=== PATIENT | male | born 1970 | race African-American/Black ===

== ENCOUNTER 2022-01-06 13:44 | Emergency (ER) | payer OTHER ==
--- NOTE | 2022-01-06 15:43 | Emergency Department Report ---
ED Dizziness HPI - General Chief Complaint: Dyspnea/Respdistress Stated Complaint: DIFFICULTY BREATHING Time Seen by Provider: 01/06/22 15:00 Source: patient, EMS, RN notes reviewed Mode of arrival: Stretcher Limitations: Language Barrier - History of Present Illness Initial Comments: 51-year-old male with history of congestive heart failure, hypertension, and pacemaker presents to the emergency department complaining of subjective dizziness with head movement since yesterday. Patient denies shortness of breath, but does report having a "cold" last week. Patient denies headache, chest pain, abdominal pain, nausea, vomiting, fever or chills. Patient denies weakness or fatigue. Patient denies lower extremity swelling or pain. Patient denies previous similar symptoms. Patient reports that symptoms get worse with head movement, and improved with rest. Patient family was diagnosed with COVID-19 last week. MD Complaint: dizziness - Related Data Allergies Allergy/AdvReac Type Severity Reaction Status Date / Time No Known Allergies Allergy Verified 01/06/22 13:52 ED Review of Systems ROS: Stated complaint: DIFFICULTY BREATHING Other details as noted in HPI Comment: All other systems reviewed and negative Constitutional: denies: chills, fever, weakness Eyes: denies: eye pain, eye discharge, vision change ENT: denies: ear pain, throat pain Respiratory: denies: cough, shortness of breath, wheezing Cardiovascular: denies: chest pain, palpitations Endocrine: no symptoms reported Gastrointestinal: denies: abdominal pain, nausea, diarrhea Genitourinary: denies: urgency, dysuria Musculoskeletal: denies: back pain, joint swelling, arthralgia Skin: denies: rash, lesions Neurological: vertigo. denies: headache, weakness, paresthesias Psychiatric: denies: anxiety, depression Hematological/Lymphatic: denies: easy bleeding, easy bruising ED Past Medical Hx - Past Medical History Hx Hypertension: Yes Hx Congestive Heart Failure: Yes - Surgical History Hx Pacemaker: Yes ED Physical Exam - General Limitations: Language Barrier General appearance: alert, in no apparent distress - Head Head exam: Present: atraumatic, normocephalic - Eye Eye exam: Present: normal appearance, PERRL, EOMI - ENT ENT exam: Present: mucous membranes moist - Neck Neck exam: Present: normal inspection, other (No carotid bruits) - Respiratory Respiratory exam: Present: normal lung sounds bilaterally. Absent: respiratory distress - Cardiovascular Cardiovascular Exam: Present: regular rate, normal rhythm. Absent: systolic murmur, diastolic murmur, rubs, gallop - GI/Abdominal GI/Abdominal exam: Present: soft, normal bowel sounds - Rectal Rectal exam: Present: deferred - Extremities Exam Extremities exam: Present: normal inspection - Back Exam Back exam: Present: normal inspection - Neurological Exam Neurological exam: Present: alert, oriented X3, CN II-XII intact, normal gait, motor sensory deficit, reflexes normal - Psychiatric Psychiatric exam: Present: normal affect, normal mood - Skin Skin exam: Present: warm, dry, intact, normal color. Absent: rash ED Course Vital Signs 01/06/22 01/06/22 01/06/22 13:51 16:30 16:46 Temperature 97.8 F Pulse Rate 60 62 58 L Respiratory 20 13 13 Rate Blood Pressure Blood Pressure 90/63 [Right] O2 Sat by Pulse 99 96 Oximetry 01/06/22 01/06/22 01/06/22 17:01 17:15 17:31 Temperature Pulse Rate 61 60 62 Respiratory 14 14 12 Rate Blood Pressure 106/59 106/59 106/59 Blood Pressure [Right] O2 Sat by Pulse 97 97 97 Oximetry 01/06/22 01/06/22 17:45 18:01 Temperature Pulse Rate 59 L 62 Respiratory 15 16 Rate Blood Pressure 106/59 106/59 Blood Pressure [Right] O2 Sat by Pulse 96 97 Oximetry - Reevaluation(s) Reevaluation #1: 01/06/22 18:44 Patient reports improvement of his dizziness. His blood pressure has improved, as well. Patient agrees to plan to be discharged home, and will follow up with his primary care doctor. ED Medical Decision Making - Lab Data Result diagrams: 01/06/22 16:15 01/06/22 16:15 - EKG Data Rate: normal - EKG Data 01/06/22 18:45 Read at 1630 8 PM atrial sensed ventricular reticular paced rhythm at 60 Critical care attestation.: If time is entered above; I have spent that time in minutes in the direct care of this critically ill patient, excluding procedure time. ED Disposition Clinical Impression: Dizziness Disposition: 01 HOME / SELF CARE / HOMELESS Is pt being admited?: No Does the pt Need Aspirin: No Condition: Stable Instructions: Dizziness, Hypotension Referrals: PRIMARY CARE, [Primary Care Provider] - 3-5 Days Time of Disposition: 18:46
[2022-01-06] MEDS ORDERED: SODIUM CHLORIDE 0.9% 500 ML 500 ML IV ONE (15:51)
--- NOTE | 2022-01-06 16:20 | XRay Report ---
CHEST 1 VIEW 01/06/2022 3:13 PM INDICATION / CLINICAL INFORMATION: Dyspnea. COMPARISON: None available. FINDINGS: SUPPORT DEVICES: Pacemaker and leads are satisfactory in position HEART / MEDIASTINUM: No significant abnormality. LUNGS / PLEURA: No significant pulmonary or pleural abnormality. No pneumothorax. ADDITIONAL FINDINGS: No significant additional findings. IMPRESSION: 1. No acute findings. Signer Name: Tim Valadez MD Signed: 01/06/2022 4:16 PM Workstation Name: [id number]
--- NOTE | 2022-01-06 17:01 | Cat Scan Report ---
CT head/brain wo con INDICATION / CLINICAL INFORMATION: 51 years Male; dizziness r/o ich. TECHNIQUE: Routine CT head without contrast. All CT scans at this location are performed using CT dos e reduction for ALARA by means of automated exposure control. COMPARISON: None. FINDINGS: BRAIN / INTRACRANIAL CONTENTS: No acute hemorrhage, mass effect, midline shift, hydrocephalus, or acu te, large territorial infarct. No signs of significant atrophy or chronic infarct. No significant whi te matter abnormality seen. CRANIOCERVICAL JUNCTION: No significant abnormality. ORBITS: No significant abnormality of visualized orbits. SINUSES / MASTOIDS: Significant opacification of the ethmoids, as well as the maxillary antra-right g reater than left. ADDITIONAL FINDINGS: None. IMPRESSION: 1. No focal mass, hemorrhage, hydrocephalus, or acute, large territorial infarct. 2. Significant sinus disease noted. Signer Name: Jose Dunbar MD, III Signed: 01/06/2022 4:57 PM Workstation Name: [employer] ([employer])
[2022-01-06 17:02] LABS: Basophils # (Auto) 0.1 K/mm3 (0.0-0.1); Basophils % (Auto) 0.8 % (0.0-1.8); Eosinophils # (Auto) 0.2 K/mm3 (0.0-0.4); Eosinophils % (Auto) 1.7 % (0.0-4.3); Hematocrit 38.9 % (35.5-45.6); Hemoglobin 13.7 gm/dl (11.8-15.2); Lymphocytes # (Auto) 1.9 K/mm3 (1.2-5.4); Lymphocytes % (Auto) 16.9 % (13.4-35.0); Mean Corpuscular HGB Conc 35 % (32-34); Mean Corpuscular Volume 94 fl (84-94); Monocytes # (Auto) 0.8 K/mm3 (0.0-0.8); Platelet Count 191 K/mm3 (140-440); Red Blood Count 4.13 M/mm3 (3.65-5.03); Red Cell Distribution Width 12.4 % (13.2-15.2)
[2022-01-06 17:04] LABS: Alanine Aminotransferase 19 units/L (7-56); Albumin 3.7 g/dL (3.9-5); BUN/Creatinine Ratio 14; Blood Urea Nitrogen 13 mg/dL (9-20); Calcium 8.4 mg/dL (8.4-10.2); Hemolysis Index 10
[2022-01-06 17:27] LABS: INR 0.99 (0.87-1.13)
[2022-01-06 17:28] LABS: Partial Thromboplastin Time 31.3 Sec. (24.2-36.6)
[2022-01-06 18:08] VITALS: BP 106/59
--- NOTE | 2022-01-07 09:41 | Electrocardiograph Report ---
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
== END 2022-01-06 18:45 | disposition home or self-care (01) ==
LOC: ED 13:44
DX: R42 Dizziness and giddiness (principal); I10 Essential (primary) hypertension
CPT/HCPCS: 36415; 70450; 71045; 80053; 84484; 85025; 85379; 85610; 85730; 93005; 99284; J7040